=== PATIENT | male | born 1965 | race Caucasian/White ===

== ENCOUNTER 2021-02-11 09:06 | Outpatient (CLI) | payer BC | END 2021-02-11 09:07 | disposition home or self-care (01) | LOC: CSHCT 09:06 | PROVIDERS: ATTEND Internal Medicine Gastroenterology | DX: R94.5 Abnormal results of liver function studies (principal); K52.9 Noninfective gastroenteritis and colitis, unspecified; Z80.0 Family history of malignant neoplasm of digestive organs | CPT/HCPCS: 74170 ==

== ENCOUNTER 2024-08-17 10:26 | Day surgery (SDC) | payer BC ==
[2024-08-16 14:18] VITALS: BMI 29.5
[2024-08-17] MEDS ORDERED: CEFAZOLIN 2 GM VIAL ONE (11:57)
[2024-08-17] MEDS ORDERED: Bupivacaine 0.25% HCL 30 ML VIAL ONE (11:57)
[2024-08-17] MEDS ORDERED: EPINEPHrine 1 MG/ML VIAL ONE (11:57)
[2024-08-17] MEDS ORDERED: PROPOFOL 60 ML ONE (12:00)
[2024-08-17] MEDS ORDERED: fentaNYL 50 mcg/mL 1 mL Vial ONE (12:02)
[2024-08-17] MEDS ORDERED: Midazolam HCl 2 mg/2 ml Vial ONE (12:18)
== END 2024-08-17 14:00 | disposition home or self-care (01) ==
LOC: CSHSDC 10:26
PROVIDERS: ATTEND Surgery
PROC: 0JH60WZ Insertion of Totally Implantable Vascular Access Device into Chest Subcutaneous Tissue and Fascia, Open Approach (ICD-10-PCS; principal; 2024-08-17)
DX: C18.9 Malignant neoplasm of colon, unspecified (principal); E03.9 Hypothyroidism, unspecified; K21.9 Gastro-esophageal reflux disease without esophagitis; N40.0 Benign prostatic hyperplasia without lower urinary tract symptoms; Z79.899 Other long term (current) drug therapy; Z79.890 Hormone replacement therapy; Z88.6 Allergy status to analgesic agent; Z88.8 Allergy status to other drugs, medicaments and biological substances
CPT/HCPCS: 71045; C1788; J0171; J0665; J1642; J2250; J2704; J3010

== ENCOUNTER 2024-09-29 09:31 | Emergency (ER) | payer BC ==
[2024-09-29] MEDS ORDERED: Dicyclomine 20 MG TAB ONE (10:40)
[2024-09-29 10:59] LABS: Phosphorus 3.1 mg/dL (2.3-4.7)
[2024-09-29 11:01] LABS: ALT (SGPT) 15 U/L (8-55); AST (SGOT) 19 U/L (5-34); Albumin 3.8 g/dL (3.5-5.0); Alkaline Phosphatase 93 U/L (40-110); Anion Gap 15 mmol/L (10-20); BUN (Urea Nitrogen) 17 mg/dL (8.4-25.7); Bilirubin, Total 1.8 mg/dL (0.2-1.2); Calc. Creatinine Clearance 0 mL/min (70-130); Carbon Dioxide 26 mmol/L (22-29); Chloride 101 mmol/L (98-107); Estimated GFR 75; Globulin 2.9 g/dL (2.4-3.5); Glucose 110 mg/dL (70-105); Lipase 49 U/L (8-78); Magnesium 1.9 mg/dL (1.6-2.6); Potassium 4.6 mmol/L (3.5-5.1); Protein, Total 6.7 g/dL (6.0-8.3); Sodium 137 mmol/L (136-145)
[2024-09-29 11:32] LABS: Hematocrit 47.7 % (38.8-50.0); Hemoglobin 16.8 g/dL (13.5-17.5); Mean Corpuscular HGB CONC 35.2 g/dL (32.0-36.0); Mean Corpuscular Hemoglobin 32.6 pg (27.0-33.0); Mean Corpuscular Volume 92.6 fL (81.2-95.1); Platelet Count 171 10x3/uL (150-450); RBC Distribution Width 17.7 % (11.5-14.5); Red Blood Cell (RBC) Count 5.15 10x6/uL (4.32-5.72); White Blood Cell (WBC) Count 4.4 10x3/uL (3.5-10.5)
[2024-09-29 12:08] LABS: MDiff Complete? YES
[2024-09-29 12:12] LABS: Eosinophils 2 % (0-10); Monocytes 25 % (0-10); Neutrophil 45 % (42-75)
[2024-09-29 12:13] LABS: Lymphocytes 27 % (21-51)
[2024-09-29 12:14] LABS: Platelet Adequacy Comment Appears Adequate; RBC Morph Comment Within Normal Limits
[2024-09-29] MEDS ORDERED: Iopamidol 300 61% 100 ML VIAL FS ONE (12:31)
== END 2024-09-29 11:50 | disposition home or self-care (01) ==
LOC: CSHERS 09:31
DX: K52.9 Noninfective gastroenteritis and colitis, unspecified (principal)
CPT/HCPCS: 36415; 74177; 80053; 83605; 83630; 83690; 83735; 84100; 85025; 87040; 87324; 87328; 87329; 87449; 93005; 96360; Q9967

== ENCOUNTER 2025-07-24 07:15 | Outpatient (CLI) | payer BC ==
[2025-07-24 08:17] LABS: Estimated GFR - POC 97.0
[2025-07-24] MEDS ORDERED: Iopamidol 370 76% 100 ML VIAL ONE (09:44)
== END 2025-07-24 07:16 | disposition home or self-care (01) ==
LOC: CSHCT 07:15
PROVIDERS: ATTEND Internal Medicine
DX: C18.4 Malignant neoplasm of transverse colon (principal); R91.1 Solitary pulmonary nodule; R59.0 Localized enlarged lymph nodes; Z90.49 Acquired absence of other specified parts of digestive tract
CPT/HCPCS: 36415; 71260; 74177; 82565

== ENCOUNTER 2025-08-31 16:09 | Emergency (ER) | payer BC ==
[~2025-08-31 16:09] MED LIST: Iopamidol 300 61% 100 ML VIAL FS ONE
[2025-08-31 17:01] LABS: #Basophils 0.04 10x3/uL (0.0-0.2); #Eosinophils 0.17 10x3/uL (0.0-0.5); #Monocytes 0.56 10x3/uL (0.0-1.1); #Neutrophils 3.99 10x3/uL (1.5-8.4); %Basophils 0.7 % (0.0-2.0); %Eosinophils 2.8 % (0.0-6.0); %Lymphocytes 21.4 % (18.0-47.0); %Monocytes 9.2 % (0.0-10.0); %Neutrophils 65.6 % (40.0-75.0); Hematocrit 44.8 % (38.8-50.0); Hemoglobin 16.0 g/dL (13.5-17.5); Mean Corpuscular Hemoglobin 30.5 pg (27.0-33.0); Mean Corpuscular Volume 85.3 fL (81.2-95.1); Platelet Count 156 10x3/uL (150-450); Red Blood Cell (RBC) Count 5.25 10x6/uL (4.32-5.72); White Blood Cell (WBC) Count 6.08 10x3/uL (3.5-10.5)
[2025-08-31 17:14] LABS: ALT (SGPT) 19 U/L (Less than 45); AST (SGOT) 32 U/L (11-34); Albumin 4.3 g/dL (3.1-4.5); Alkaline Phosphatase 119 U/L (40-110); Anion Gap 15 mmol/L (10-20); BUN (Urea Nitrogen) 20 mg/dL (8.4-25.7); Bilirubin, Total 1.4 mg/dL (0.3-1.2); Calc. Creatinine Clearance 0 mL/min (70-130); Calcium 9.1 mg/dL (7.8-10.44); Carbon Dioxide 22 mmol/L (23-31); Chloride 108 mmol/L (98-107); Globulin 3.3 g/dL (2.4-3.5); Glucose 103 mg/dL (80-115); Lipase 20 U/L (8-78); Potassium 3.7 mmol/L (3.5-5.1); Sodium 141 mmol/L (136-145)
[2025-08-31 18:26] LABS: Glucose, Urine (Dipstick) Normal (Negative); Leukocyte Negative (Negative); Protein, Urine (Dipstick) Negative (Neg-Trace); Specific Gravity, Urine 1.010 (1.005-1.030)
[2025-08-31 18:32] LABS: CAUTI Indications for Culture Pelvic or flank pain; RBC/HPF None Seen HPF (0-3); WBC/HPF None Seen HPF (0-3)
[2025-08-31 18:33] LABS: Bacteria/HPF Rare-Few HPF (None Seen)
[2025-08-31 18:34] LABS: Urine Culture Reflex No No
[2025-08-31] MEDS ORDERED: Famotidine/PF 20 mg/2ml Vial ONE (18:40)
[2025-08-31] MEDS ORDERED: Dicyclomine 20 MG TAB ONE (18:41)
== END 2025-08-31 19:01 | disposition home or self-care (01) ==
LOC: CSHERS 16:09
DX: R10.12 Left upper quadrant pain (principal)
CPT/HCPCS: 71045; 74177; 80053; 81001; 83605; 83690; 85025; 96374; 96375; J1308; J2272; Q9967